=== PATIENT | female | born 1985 | race Hispanic/Latino ===

== ENCOUNTER 2016-08-11 18:02 | Observation (INO) | payer OTHER ==
[~2016-08-11] VITALS: Ht 144.8 cm; Wt 68.0 kg
[2016-08-11] MEDS ORDERED: Lactated Ringer's 1,000 ML IV PRN (19:58)
[2016-08-11] MEDS ORDERED: Methylergonovine 0.2 mg/mL Inj IM PRN (20:00)
[2016-08-11] MEDS ORDERED: Hemorrhage Kit, Post Partum XX ONE (20:00)
[2016-08-11] MEDS ORDERED: fentaNYL-PF 50 mCg/mL 2 mL Inj IVPUSH PRN (20:00)
[2016-08-11] MEDS ORDERED: Carboprost 250 mCg/mL Inj IM PRN (20:00)
[2016-08-11] MEDS ORDERED: Oxytocin 30 Units/500 mL LR 30 UNITS in IV Premix 1 EACH IV PRN (20:00)
[2016-08-11] MEDS ORDERED: Ondansetron 2 mg/mL 2 mL Inj IVPUSH PRN (20:00)
[2016-08-11] MEDS ORDERED: Sodium Chloride LOK Flush 10 mL Syringe IVFLUSH PRN (20:00)
[2016-08-11] MEDS ORDERED: Oxytocin 10 Unit/mL Inj IM PRN (20:00)
[2016-08-11] MEDS ORDERED: PREN-75 PO (20:01)
[2016-08-11 21:18] LABS: Mean Corpuscular Hemoglobin 31.3 pg (27.0-35.0)
--- NOTE | 2016-08-12 06:21 | PCM.PNOBIP ---
Subjective Date of Service Aug 12, 2016 Visit History Patient admitted at 39 2/7 weeks EGA, in labor. Subjective In to check on interval progress. Currently feeling well. Rested through the night. Pain Management: No or Minimal Pain Activity: Ambulating Independently Labs Laboratory Tests 08/11/16 20:40: White Blood Count 8.1, Red Blood Count 4.69, Hemoglobin 14.7, Hematocrit 42.7, Mean Corpuscular Volume 91.0, Mean Corpuscular Hemoglobin 31.3, Mean Corpuscular Hemoglobin Concent 34.4, Red Cell Distribution Width 13.0, Platelet Count 99 Exam Vital Signs Vital Signs Contraction frequency in minutes: MVUs: Vital Signs: VS reviewed, stable Heart Tracings Heart Tones Baseline 130 bpm Heart Rate Variability: Moderate Heart Rate Accelleration: Present Heart Rate Deceleration: Absent Heart Rate Category: I Tocometry/IUPC Contraction frequency in minutes: approximately q10 MVUs: Sterile Vaginal Exam Cervical Dilation: 4 cms Cervical Effacement: 30 % Station: -2 Exam General: Alert, Oriented X3, Cooperative, No Acute Distress OB Intrapartum Assessment/Plan Assessment Latent phase labor -- will discharge home with plan to return for signs of active phase labor. Mariano Durham MD Aug 12, 2016 06:21
--- NOTE | 2016-08-12 06:27 | PCM.DC.OB ---
Obstetrical Discharge Summary Date of Service Aug 12, 2016 Date of hospital admission Aug 11, 2016 at 19:42 Date of Discharge: Aug 12, 2016 Providers Admitting Physician: Mariano Durham MD Primary Care Physician: Mariano Durham MD Attending Physician: Mariano Durham MD Diagnosis at Time of Discharge Latent phase labor Problems: (1) with 39 completed weeks gestation Status: Acute ICD Code: Z3A.39 Brief History and Physical: admitted at 39 2/5 weeks EGA for presumed active phase labor. Hospital Course: Patient was admitted for expectant management. Her contraction pattern decreased in frequency and there was no interval cervical change overnight. She was discharged home in latent phase labor, with instructions to return for contractions increasing in frequency and intensity, vaginal leakage of fluid, or vaginal bleeding. #103/Iron Fumarate/FA ( Tablet) 1 Each Tablet 1 EACH PO DAILY (Reported) Disposition Home Discharge Diet: No restrictions Discharge Activity-General: No restrictions Mariano Durham MD Aug 12, 2016 06:27
--- NOTE | 2016-08-12 06:30 | PCM.DIOB ---
Obstetrical Disch Instruction Date of Service: Aug 12, 2016 Dates of Hospitalization Date of Hospital Admission Aug 11, 2016 at 19:42 Providers Admitting Physician: Mariano Durham MD Primary Care Physician: Mariano Durham MD Attending Physician: Mariano Durham MD Discharge Diagnosis Discharge Diagnosis Latent phase labor Problems: (1) with 39 completed weeks gestation Status: Acute ICD Code: Z3A.39 Diet Discharge Diet: No restrictions Activity Discharge Activity-General: No restrictions Additional Instructions Discharge Instructions Please return for contractions increasing in strength and becoming more frequent (every 3-5 minutes), vaginal leakage of fluid, vaginal bleeding, or if you do not feel your baby moving. Follow Up Plan Follow-up Provider (F9): Mariano Durham MD Follow-up appointment: Days (1) Mariano Durham MD Aug 12, 2016 06:30
== END 2016-08-12 06:50 | disposition home or self-care (01) ==
LOC: FBCO 18:02 → FBC 19:42 → INTOOBSV 19:42
PROVIDERS: ADMIT Family Medicine; ATTEND Family Medicine
DX: O66.40 Failed trial of labor, unspecified (principal); Z3A.39 39 weeks gestation of pregnancy
CPT/HCPCS: 36415; 85027; 86922; G0463

== ENCOUNTER 2016-08-14 07:13 | Inpatient (IN) | payer OTHER ==
[~2016-08-14] VITALS: Ht 144.8 cm; Wt 67.1 kg
[~2016-08-14 07:13] MED LIST: PREN-75 PO
[2016-08-14] MEDS ORDERED: Oxytocin 10 Unit/mL Inj IM PRN ×2 (07:35→15:10)
[2016-08-14] MEDS ORDERED: Methylergonovine 0.2 mg/mL Inj IM PRN ×2 (07:35→15:10)
[2016-08-14] MEDS ORDERED: Hemorrhage Kit, Post Partum XX ONE ×2 (07:35→15:10)
[2016-08-14] MEDS ORDERED: Oxytocin 30 Units/500 mL LR 30 UNITS in IV Premix 1 EACH IV PRN ×2 (07:35→15:10)
[2016-08-14] MEDS ORDERED: Sodium Chloride LOK Flush 10 mL Syringe IVFLUSH PRN (07:35)
[2016-08-14] MEDS ORDERED: Carboprost 250 mCg/mL Inj IM PRN ×2 (07:35→15:10)
[2016-08-14 08:07] LABS: Mean Corpuscular Hemoglobin 31.7 pg (27.0-35.0); Mean Corpuscular Volume 90.7 fL (81-100)
--- NOTE | 2016-08-14 09:24 | PCM.HPANE ---
Patient Data Surgeon Admitting Provider:Mariano Durham MD Attending Provider:Mariano Durham MD Primary Care Physician:Mariano Durham MD Other Provider: Reason for Visit LABOR LABOR Ht/WT & BMI Body Mass Index Allergies Coded Allergies: No Known Allergies (Unverified , 08/14/16) Diabetes History Hx Diabetes?: No Medications Hypertension Medication: No Home Meds Incl Beta Justin: No Reported Medications #103/Iron Fumarate/FA ( Tablet)1 Each Tablet1 Each PO DAILY 08/11/16 History Hx of Heart Problems?: No Cardiovascular History: Denies:: Congestive Heart Failure Hypertension Hx of Respiratory Problem?: No Respiratory History: Denies:: Tuberculosis Hx Neurologic Problems?: No Hx of GI Problems?: Yes Gastrointestinal History: Positive for:: Heartburn Female Hx: Positive for:: Currently Hx Surgeries?: Yes (bernice) Hx Diabetes: No Hx Alcohol Use: NoHx Substance Use: No Smoking Status: Never Smoker Stop/Bang Treated for Sleep Apnea?: No Do You Have a CPAP Machine?: No CRISPIN Risk Assessment: Low Risk, <3 Yes Risk Assessment Category Category 1A: Patient has history of documented sleep apnea, and HAS NOT received any narcotic, sedative or anesthesia administration during this stay. Category 1B: Patient has history of documented sleep apnea, and HAS received any narcotic , sedative or anesthesia administration during this stay Category 2: Patient has SUSPECTED Obstructive Sleep Apnea, and HAS received any narcotic , sedative or anesthesia administration during this stay. Category 3: Patient has SUSPECTED Obstructive Sleep Apnea and HAS NOT received narcotic, sedative or anesthesia administration during this stay. Category 4: Outpatient in Procedural Areas with known sleep apnea or who screen positive for High Risk via the STOP/BANG questionnaire. Exam Exam General Appearance: Oriented X3 Lungs: Normal Air Movement Heart: Regular Rate/Rhythm Meds/Labs/Diagnostics Labs Test 08/14/16 07:50 White Blood Count 9.0th/mm3 (3.8-10.1) Red Blood Count 4.82mil/mm3 (3.90-5.20) Hemoglobin 15.3g/dL (12.0-15.6) Hematocrit 43.7% (35.0-46.0) Mean Corpuscular Volume 90.7fL (81-100) Mean Corpuscular Hemoglobin 31.7pg (27.0-35.0) Mean Corpuscular Hemoglobin Concent 35.0% (32.0-37.0) Red Cell Distribution Width 13.2% (12.3-15.4) Platelet Count 90bil/L (150-400) Plan Impression Patient chart reviewed, patient interviewed and anesthestic plan with risks, benefits, and alternatives discussed, and informed consent obtained. ASA Physical Status: ASA3 Severe Disease Anesthetic Plan: Epidural Bene/Risks/Altern/Consents: Yes HP Complete Prior to Induction: Yes Nathaniel Aquino MD Aug 14, 2016 09:23
[2016-08-14] MEDS: Lactated Ringer's 1,000 ML IV PRN ×2 (13:20→13:40)
[2016-08-14] MEDS ORDERED: LANOlin HPA 7 Gm Ointment TOPICAL PRN (15:10)
[2016-08-14] MEDS ORDERED: Benzocaine (Dermoplast) 20% 60 Gm Spray TOPICAL PRN (15:10)
[2016-08-14] MEDS ORDERED: Witch Hazel-Glycerin Pads TOPICAL PRN (15:10)
[2016-08-14] MEDS ORDERED: HYDROcodone-APAP 5-325 mg Tablet PO PRN (15:10)
[2016-08-14] MEDS ORDERED: Lactated Ringer's 1,000 ML IV SCH (15:10)
--- NOTE | 2016-08-14 15:26 | PCM.OBVAG ---
Vaginal Delivery Date of Service Aug 14, 2016 Pre Operative Diagnosis Pre Operative Diagnosis 1.) Term gestation, in labor, 2.) Thrombocytopenia, 3.) Diet controlled gestational diabetes mellitus Post Operative Diagnosis Post Operative Diagnosis Term gestation, delivered Procedure Obstetical Procedure: Normal Spontaneous Vaginal Delivery, Repair of Perineal Tear (2nd degree) Animal Cruelty Investigation Supervisor/Dust Collector Operator Provider and Dust Collector Operator: Mariano Durham MD Indication for Procedure Indication for Procedure Labor Induction: Active labor, AROM (initially clear fluid, with light meconium noted proximal to delivery), Progressed normally through labor Findings Obstetrical Findings: [place] (Male), Presentation (Vertex), 1 minute (7) , 5 minutes (8), Placenta (Intact/Normal), Perineal Laceration (2nd degree (repaired with running 3-O Vicryl)) Analgesia/Medications Procedural Analgesia: None Procedure Details Procedure Details Patient progressed through labor well. She was unable to receive epidural analgesia, secondary to thrombocytopenia. She pushed without difficulty. There was initial difficulty with the anterior shoulder passing the symphysis. She was placed in McRobert's position. An attempt was made to deliver the posterior arm, but this was difficult to reach. I was able to rotate the anterior shoulder and alleviate the dystocia. Total perineum time was 70 seconds. The was showing respiratory effort and had a normal heart rate , so the infant remained at the maternal chest. Delayed cord clamping was observed. Blood Loss & Administration Estimated Blood Loss: 300 Blood Admin during procedure: No Post Procedure Plan Post Procedure Plan Routine care. Post delivery Condition: Mom stable Mariano Durham MD Aug 14, 2016 15:26
[2016-08-15 06:44] LABS: Mean Corpuscular Hemoglobin 31.6 pg (27.0-35.0); Mean Corpuscular Volume 91.7 fL (81-100)
--- NOTE | 2016-08-15 11:06 | PCM.PNOBPP ---
Subjective Date of Service Aug 15, 2016 Post : Spontaneous Vaginal Delivery Visit History PPD#1 Subjective Patient feeling well. No complaints. Lochia: Normal Pain Management: PO pain meds, No or Minimal Pain Gastrointestinal: Good Appetite Postop Activity: Ambulating Independently Labs Laboratory Tests 08/15/16 06:05: White Blood Count 11.4, Red Blood Count 4.08, Hemoglobin 12.9, Hematocrit 37.4, Mean Corpuscular Volume 91.7, Mean Corpuscular Hemoglobin 31.6, Mean Corpuscular Hemoglobin Concent 34.5, Red Cell Distribution Width 13.0, Platelet Count 78 Exam Vital Signs Vital Signs: VS reviewed, stable Exam Abdomen: Uterus is (at the umbilicus), Fundus firm, Abdomen soft, Abdomen non- tender, Abdomen non-distended Perineum: Laceration : Voiding without difficulty Extremities: No cords, No tenderness/swelling Lungs: Clear to Auscultation, Normal Air Movement Heart: Normal S1, Normal S2, No Murmurs/Rubs/Gallops General: Alert, Oriented X3, Cooperative, No Acute Distress OB Post Assessment/Plan Assessment PPD#1 -- doing well Problems: (1) normal course Status: Acute ICD Code: Z39.2 (2) Thrombocytopenia affecting , antepartum Permanent Comment: Platelet count down to 75K today. No bleeding issues. Last Edited By: Mariano Durham MD on Aug 15, 2016 11:05 Status: Acute ICD Code: O99.119 Pain Evaluation: Adequate Pain Control Post plan: Anticipate discharge home today Plan: Repeat platelet count in 1 week. Mariano Durham MD Aug 15, 2016 11:06
--- NOTE | 2016-08-15 11:12 | PCM.DC.OB ---
Obstetrical Discharge Summary Date of Service Aug 15, 2016 Date of hospital admission Aug 14, 2016 at 07:24 Date of Discharge: Aug 15, 2016 Providers Admitting Physician: Mariano Durham MD Primary Care Physician: Mariano Durham MD Attending Physician: Mariano Durham MD Problems: (1) normal course Status: Resolved ICD Code: Z39.2 (2) Thrombocytopenia affecting , antepartum Comment: Platelet count down to 75K on day #1. No bleeding issues. Last Edited By: Mariano Durham MD on Aug 15, 2016 11:07 Status: Acute ICD Code: O99.119 (3) Gestational diabetes mellitus in , diet controlled Status: Acute ICD Code: O24.410 (4) Spontaneous vaginal delivery Status: Resolved ICD Code: O80 (5) with 39 completed weeks gestation Status: Resolved ICD Code: Z3A.39 Brief History and Physical: 31yo , admitted for active labor at term gestation. Hospital Course: Labor Course: Active labor, AROM (initially clear fluid, with light meconium noted proximal to delivery), Progressed normally through labor Findings Obstetrical Findings: [place] (Male), Presentation (Vertex), 1 minute (7) , 5 minutes (8), Placenta (Intact/Normal), Perineal Laceration (2nd degree (repaired with running 3-O Vicryl)) Analgesia/Medications Procedural Analgesia: None Procedure Details Procedure Details Patient progressed through labor well. She was unable to receive epidural analgesia, secondary to thrombocytopenia. She pushed without difficulty. There was initial difficulty with the anterior shoulder passing the symphysis. She was placed in McRobert's position. An attempt was made to deliver the posterior arm, but this was difficult to reach. I was able to rotate the anterior shoulder and alleviate the dystocia. Total perineum time was 70 seconds. The was showing respiratory effort and had a normal heart rate , so the remained at the maternal chest. Delayed cord clamping was observed. Blood Loss & Administration Estimated Blood Loss: 300 She did well through her course. Lochia was minimal. Platelet count had decreased to 75K on day #1. Plan is to repeat a level in 1 week, sooner if she experiences bleeding issues. #103/Iron Fumarate/FA ( Tablet) 1 Each Tablet 1 EACH PO DAILY (Reported) Disposition Home Follow-up plan Repeat CBC in 1 week. Follow up visit in 6 weeks. Discharge Diet: No restrictions Discharge Activity-General: Pelvic Rest for 6 weeks Mariano Durham MD Aug 15, 2016 11:12
--- NOTE | 2016-08-15 11:15 | PCM.DIOB ---
Obstetrical Disch Instruction Date of Service: Aug 15, 2016 Dates of Hospitalization Date of Hospital Admission Aug 14, 2016 at 07:24 Providers Admitting Physician: Mariano Durham MD Primary Care Physician: Mariano Durham MD Attending Physician: Mariano Durham MD Discharge Diagnosis Problems: (1) normal course Status: Resolved ICD Code: Z39.2 (2) Thrombocytopenia affecting , antepartum Permanent Comment: Platelet count down to 75K on day #1. No bleeding issues. Last Edited By: Mariano Durham MD on Aug 15, 2016 11:07 Status: Acute ICD Code: O99.119 (3) Gestational diabetes mellitus in , diet controlled Status: Acute ICD Code: O24.410 (4) Spontaneous vaginal delivery Status: Resolved ICD Code: O80 (5) with 39 completed weeks gestation Status: Resolved ICD Code: Z3A.39 Diet Discharge Diet: No restrictions Activity Discharge Activity-General: Pelvic Rest for 6 weeks Dressing and Incisional Care Hygiene: May shower Additional Instructions Discharge Instructions Please return to the clinic for a repeat blood draw, to check your platelet level, in 1 week. Follow Up Plan Follow-up Provider (F9): Mariano Durham MD Follow-up appointment: Weeks (6) Mariano Durham MD Aug 15, 2016 11:14
[2016-08-15 11:27] VITALS: BP 115/59; PULSE 83; RESP 16
== END 2016-08-15 14:21 | disposition home or self-care (01) | DRG 560 ==
LOC: FBCO 07:13 → FBC 07:24
PROVIDERS: ADMIT Family Medicine; ATTEND Family Medicine
PROC: 10E0XZZ Delivery of Products of Conception, External Approach (ICD-10-PCS; principal; 2016-08-14)
PROC: 0KQM0ZZ Repair Perineum Muscle, Open Approach (ICD-10-PCS; 2016-08-14)
PROC: 10907ZC Drainage of Amniotic Fluid, Therapeutic from Products of Conception, Via Natural or Artificial Opening (ICD-10-PCS; 2016-08-14)
DX: O70.1 Second degree perineal laceration during delivery (principal); O66.0 Obstructed labor due to shoulder dystocia; O77.0 Labor and delivery complicated by meconium in amniotic fluid; O76 Abnormality in fetal heart rate and rhythm complicating labor and delivery; O99.113 Other diseases of the blood and blood-forming organs and certain disorders involving the immune mechanism complicating pregnancy, third trimester; D69.6 Thrombocytopenia, unspecified; O24.420 Gestational diabetes mellitus in childbirth, diet controlled; Z37.0 Single live birth; Z3A.39 39 weeks gestation of pregnancy